=== PATIENT | male | born 1990 | race American Indian/Alaskan Native ===

== ENCOUNTER 2018-07-20 10:29 | Day surgery (SDC) | payer OTHER ==
[2018-07-20 11:32] LABS: Blood Urea Nitrogen 12 mg/dL (9-20)
[2018-07-20] MEDS ORDERED: NITROSTAT SL ONE (12:10)
[2018-07-20] MEDS ORDERED: ATROPINE 0.1% (CARDIAC) ONE (12:14)
[2018-07-20] MEDS ORDERED: LOPRESSOR IV ONE (12:14)
[2018-07-20 14:48] VITALS: BP 110/70
--- NOTE | 2018-07-21 07:27 | Cat Scan Report ---
CT ANGIO HEART STRUCTURE/MORPHOLOGY/FUNCTION: INDICATION: Chest pain, abnormal EKG. COMPARISON: None similar at this institution. FINDINGS: A limited chest CT scan was carried out for evaluation of heart structure, morphology and function. This dictation is for the non-cardiac portion of the chest which was included. No definite hilar or mediastinal mass. Visualized lungs are well-expanded and clear with a tiny, 3 mm peripheral right lower lobe pleural-based nodular density as on axial series 6, image 5 most likely postinflammatory. Nonspecific distal esophageal mild prominence/wall thickening, not excluded for gastroesophageal reflux and/or hiatal hernia, amongst others. Left hepatic lobe tip touches the spleen in the left upper quadrant. Unremarkable bones. IMPRESSION: No significant extracardiac CT abnormalities with few incidental findings, as above. Thank you for the opportunity to participate in this patient's care.
--- NOTE | 2018-07-25 18:08 | CT Calcium Scoring Report ---
Coronary Calcium Score Date of service: 07/25/18 Procedure: High-resolution computed tomographic imaging of the chest was performed on07/20/18 with particular attention paid to the coronary arteries. Images from the examination were analyzed for the presence and extent of coronary artery calcification, using coronary calcium quantification software. The patient tolerated the procedure well and there were no complications. The results of the coronary calcification analysis are provided below. The patient scores are compared with published data related to scores for people of a similar age and the same gender. - Findings Total Agatson Score: 0 Findings: Cardiac CTA Indication: chest pain Informed consent obtained Procedure: The patient was brought to the cardiac ct laboratory at [facility] in stable condition after a 4 hour fast. Heart rate was regulated by beta blockade. Sublingual ngt was administered. A coronary calcium score was performed via the Agatston method. Left ventricular function was assessed by the threshold based volumetric segmentation approach. A separate radiology assessment of the non cardiac structures in the field of view will be provided. Superior vena cava in the field of view normal Inferior vena cava in the filed of view normal Ascending aorta in the field of view normal Descending aorta in the field of view normal Pulmonary artery in the filed of view normal Pulmonary veins enter the left atrium normal Left ventricle normal Right Ventricle normal Left atrium normal Left atrial appendage normal Right atrium normal Interventricular septum normal Interatrial septum normal Aortic valve normal Mitral Valve normal Intracardiac mass none Pericardial effusion none Coronary Angiography: Dominance: right Origins: normal Left main: normal Left anterior descending coronary artery and diagonal branches: normal Circumflex coronary artery and obtuse marginal branches: normal Right coronary artery: normal Cor Alcon Score: 0 LV EF: 50% normal wall motion
== END 2018-07-20 13:00 | disposition home or self-care (01) ==
LOC: CATHLABREC 10:29
PROVIDERS: ATTEND Internal Medicine Cardiovascular Disease
DX: R07.9 Chest pain, unspecified (principal); R94.31 Abnormal electrocardiogram [ECG] [EKG]; K76.89 Other specified diseases of liver
CPT/HCPCS: 36415; 75574; 82565; 84520; Q9967; J0461